=== PATIENT | female | born 1975 | race Caucasian/White ===

== ENCOUNTER 2021-12-05 04:36 | Emergency (ER) | payer OTHER, SELFPAY ==
[2021-12-05 05:02] VITALS: BP 149/85; PULSE 70; RESP 16; TEMP 36.4; O2SAT 98
--- NOTE | 2021-12-05 05:31 | ED_ITS ---
HPI - General Adult General Chief complaint: Extremity Pain/Injury, Lower Stated complaint: Left leg pain/numbness Time Seen by Provider: 12/05/21 05:18 History of Present Illness HPI narrative: This 46 year old female comes in with pain in her low back and left buttock radiating down her left leg. 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 This pain has worsened and now it extends down her whole left leg. She did go to a chiropractor yesterday and feels that symptoms are worsening now today. She was also at urgent care elsewhere and was prescribed Robaxin and gabapentin. She states that she has been unable to sleep because of this discomfort despite taking these medicines. Related Data Home Medications Medication Instructions Recorded Confirmed albuterol sulfate 90 mcg/actuation inhalation 12/05/21 aerosol inhaler azelastine 137 mcg (0.1 %) nasal intranasal 12/05/21 spray aerosol bupropion HCl 150 mg 24 hr tablet, mg PO 12/05/21 extended release fluticasone 250 mcg-salmeterol 50 inhalation 12/05/21 mcg/dose blistr powdr for inhalation (Advair Diskus) gabapentin 100 mg capsule mg 12/05/21 hydrochlorothiazide 50 mg tablet mg 12/05/21 lisinopril 20 mg tablet mg 12/05/21 methocarbamol 500 mg tablet mg 12/05/21 naltrexone 50 mg tablet mg 12/05/21 nitrofurantoin 12/05/21 monohydrate/macrocrystals 100 mg capsule sertraline 100 mg tablet mg 12/05/21 sumatriptan succinate 50 mg tablet mg PO 12/05/21 Previous Rx's Medication Instructions Recorded methylprednisolone 4 mg tablets in 4 mg PO DAILY #21 ea 12/05/21 a dose pack (Medrol (Darin)) Allergies Allergy/AdvReac Type Severity Reaction Status Date / Time clarithromycin [From Biaxin] Allergy Intermediate Diarrhea Verified 12/05/21 05:13 Sulfa (Sulfonamide Allergy Unknown Verified 12/05/21 05:13 Antibiotics) Review of Systems Status of ROS: Reports: 10 or more systems reviewed and unremarkable except as noted in History and below Narrative: Constitutional: No fevers, no weight gain or loss. Eyes: No discharge. No vision changes. HENT: No congestion, no sore throat, no ear pain. Cardiovascular: No chest pain, no palpitations. Respiratory: No shortness of breath, no wheezes, no cough. Gastrointestinal: No abdominal pain, no vomiting, no diarrhea. Genitourinary: No dysuria, no hematuria. Musculoskeletal: Normal range of motion. Low back pain and left buttock pain radiating down the left leg. Skin: No rashes, no pruritis. Neurological: No dizziness, weakness, sensory change, speech change. Endo/Heme/Allergies: No bruising or bleeding. No polydipsia. Pysch: no suicidality, no anxiety, no insomnia. All other systems reviewed and are negative. [facility] Smoking Status: Never smoker Second hand tobacco smoke exposure: No How often do you have a drink containing alcohol: never AUDIT-C Alcohol total score: 0 Non-prescribed substance use: denies use Exam Narrative: Exam Narrative: Constitutional: Well-developed, well-nourished, no acute distress. HEENT: Normocephalic, atraumatic. Neck: Normal range of motion. Nontender. Supple. Heart: Regular. No murmurs. Normal rate. Intact distal pulses. Lungs: Clear to auscultation. No chest discomfort. No wheezes, rhonchi, or rales. Abdomen: Normal bowel sounds. Nontender. No rebound tenderness. Genitalia: Deferred. Back: No midline tenderness. Pain in the left buttock radiating down the left leg posteriorly. Straight leg raise is positive with a left leg with 10-15 degrees elevation. Extremities: Normal range of motion. No injury. Skin: Intact. No rash. Warm. No erythema or pallor. Neurologic: No altered sensation. No weakness. Alert and oriented. Psychiatric: No suicidality. No anxiety or depression. No insomnia. Nursing notes and vitals signs are reviewed. Const: Vital Signs, click to edit/add: Vital Signs - 24 hr 12/05/21 05:02 Temperature 97.5 F L Pulse Rate [Right Pulse Oximeter] 70 Respiratory Rate 16 Blood Pressure [Ri ght Upper Arm] 149/85 H Pulse Oximetry 98 Oxygen Delivery Me thod Room Air Course Vital Signs Vital signs: Initial Vital Signs Temperature 97.5 F L 12/05/21 05:02 Temperature Source Temporal Artery Scan 12/05/21 05:02 Pulse Rate 70 12/05/21 05:02 Respiratory Rate 16 12/05/21 05:02 Blood Pressure 149/85 H 12/05/21 05:02 Blood Pressure Mean 106 12/05/21 05:02 Blood Pressure Position Sitting 12/05/21 05:02 Pulse Oximetry 98 12/05/21 05:02 Oxygen Delivery Method 12/05/21 05:02 Vital Signs Temperature 97.5 F L 12/05/21 05:02 Pulse Rate 70 12/05/21 05:02 Respiratory Rate 16 12/05/21 05:02 Blood Pressure 149/85 H 12/05/21 05:02 Pulse Oximetry 98 12/05/21 05:02 Oxygen Delivery Method 12/05/21 05:02 Temperature 97.5 F L 12/05/21 05:02 Pulse Rate 70 12/05/21 05:02 Respiratory Rate 16 12/05/21 05:02 Blood Pressure 149/85 H 12/05/21 05:02 Pulse Oximetry 98 12/05/21 05:02 Oxygen Delivery Method 12/05/21 05:02 Medical Decision Making MDM Narrative Medical decision making narrative: This patient comes in with symptoms typical of sciatica or lumbar radiculopathy. There was no mechanism of injury that requires x-ray or CT imaging at this time. She may need a MRI if symptoms are worsening or persistent. She is taking a muscle relaxant and gabapentin without much relief. She received an intramuscular injection of Toradol 30 mg. I provided prescriptions for [place], Toradol, and Medrol Dosepak. She understands that she will need to follow-up with her primary physician for any refills of these types of medicines. She may need to follow-up with a spine clinic if not improving. Discharge Plan Discharge Clinical Impression: Sciatica Patient Disposition: Home, Self-Care Condition: Stable Instructions: Sciatica (ED) Additional Instructions: Take medications as needed and indicated. Follow up with MD for ongoing pain management. Consider appointment with Spine Clinic if not improving. Prescriptions: New methylprednisolone [Medrol (Darin)] 4 mg tablets,dose pack 4 mg PO DAILY Qty: 21 0RF No Action methocarbamol 500 mg tablet fluticasone propion-salmeterol [Advair Diskus] 250-50 mcg/dose blister with device INHALATION Label Comments: INHALE 1 PUFF BY MOUTH TWICE DAILY. RINSE MOUTH /. GARGLE AFTER USE hydrochlorothiazide 50 mg tablet Label Comments: TAKE 1 TABLET BY MOUTH DAILY naltrexone 50 mg tablet Label Comments: TAKE 1/2 TABLET BY MOUTH DAILY lisinopril 20 mg tablet Label Comments: TAKE 1 TABLET BY MOUTH DAILY sertraline 100 mg tablet Label Comments: TAKE 1 TABLET BY MOUTH DAILY sumatriptan succinate 50 mg tablet PO Label Comments: TAKE 1 TABLET BY MOUTH DAILY. MAY REPEAT AFTER 2 HOURS NEEDED. MAX OF 4 TABLETS PER DAY gabapentin 100 mg capsule azelastine 137 mcg (0.1 %) aerosol,spray INTRANASAL Label Comments: [place] 1-2 spray into both nostrils twice a day as directed albuterol sulfate 90 mcg/actuation HFA aerosol inhaler INHALATION Label Comments: INHALE 2 PUFFS BY MOUTH EVERY 4 HOURS NEEDED FOR WHEEZING bupropion HCl 150 mg tablet extended release 24 hr PO Label Comments: TAKE 1 TABLET BY MOUTH DAILY nitrofurantoin monohyd/m-cryst 100 mg capsule Label Comments: TAKE 1 CAPSULE BY MOUTH EVERY 12 HOURS WITH MEALS AND ON A FULL STOMACH Stand Alone Forms: [facility] Info Instructions
[2021-12-05] MEDS: KETOROLAC 30 MG/ML inj IM (05:40)
== END 2021-12-05 05:57 | disposition home or self-care (01) ==
LOC: ED 05:41
PROVIDERS: Emergency Provider Emergency Medicine Emergency Medical Services
DX: M54.32 Sciatica, left side (principal); M54.31 Sciatica, right side
CPT/HCPCS: 96372; 99283; 99284; J1885